=== PATIENT | female | born 1995 | race Hispanic/Latino ===

== ENCOUNTER 2017-07-30 01:10 | Emergency (ER) | payer OTHER, SELFPAY ==
[2017-07-30] MEDS ORDERED: AMOXicillin 250 MG CAP ONE (02:36)
== END 2017-07-30 02:38 | disposition home or self-care (01) ==
LOC: BURERS 01:10
DX: S01.511A Laceration without foreign body of lip, initial encounter (principal); W06.XXXA Fall from bed, initial encounter
CPT/HCPCS: 12011